=== PATIENT | male | born 1990 | race Caucasian/White ===

== ENCOUNTER 2018-09-12 12:35 | Emergency (ER) | payer SELFPAY ==
[~2018-09-12] VITALS: Ht 170.1 cm; Wt 81.6 kg
[2018-09-12 13:00] LABS: BILIRUBIN NEGATIVE (NEGATIVE); BLOOD NEGATIVE (NEGATIVE); CLARITY SL CLOUDY (CLEAR); COLOR YELLOW (YELLOW); GLUCOSE NEGATIVE (NEGATIVE); KETONE TRACE (NEGATIVE); LEUKO ESTERASE NEGATIVE (NEGATIVE); NITRITE NEGATIVE (NEGATIVE); UROBILINOGEN 0.2 E.U./dl (0.2-1.0)
[2018-09-12 13:11] LABS: BACTERIA TRACE; MUCOUS TRACE
[2018-09-15 20:11] LABS: GONOCOCCUS BY NAA Negative (Negative)
== END 2018-09-12 13:19 | disposition home or self-care (01) ==
LOC: ED 12:35
PROVIDERS: Nurse Practitioner Family
DX: Z11.3 Encounter for screening for infections with a predominantly sexual mode of transmission (principal); R03.0 Elevated blood-pressure reading, without diagnosis of hypertension

== ENCOUNTER → 2021-04-18 | Outpatient (CLI) | payer OTHER | END | disposition home or self-care (01) | LOC: US 12:42 | PROVIDERS: ATTEND Urology | DX: N20.0 Calculus of kidney (principal); N28.89 Other specified disorders of kidney and ureter ==

== ENCOUNTER 2024-01-09 10:00 | Emergency (ER) | payer SELFPAY ==
[~2024-01-09] VITALS: Ht 175.2 cm; Wt 79.4 kg
[2024-01-09] MEDS ORDERED: ANUSOL HC30 GM R (10:46)
== END 2024-01-09 11:17 | disposition home or self-care (01) ==
LOC: ED 10:00
DX: K64.9 Unspecified hemorrhoids (principal)